=== PATIENT | female | born 1985 | race Hispanic/Latino ===

== ENCOUNTER 2018-01-03 21:11 | Emergency (ER) | payer SELFPAY ==
--- NOTE | 2018-01-03 21:52 | RAD ---
LEFT FOOT THREE VIEWS: 01/03/18 HISTORY: 32-year-old female with history of left foot injury with pain and discoloration. FINDINGS: Nondisplaced oblique fracture through the base of the distal phalanx of the great toe. This fracture may well extend into the interphalangeal joint. IMPRESSION: Nondisplaced slightly oblique fracture through the base of the distal phalanx of the great toe. POS: RRE
== END 2018-01-03 22:46 | disposition home or self-care (01) ==
LOC: ERS 21:11
DX: S92.425A Nondisplaced fracture of distal phalanx of left great toe, initial encounter for closed fracture (principal); F17.210 Nicotine dependence, cigarettes, uncomplicated; Z71.6 Tobacco abuse counseling; W22.8XXA Striking against or struck by other objects, initial encounter
CPT/HCPCS: 99406

== ENCOUNTER 2018-07-21 11:42 | Emergency (ER) | payer SELFPAY | END 2018-07-21 12:36 | disposition home or self-care (01) | LOC: ERS 11:42 | DX: B02.9 Zoster without complications (principal); F17.210 Nicotine dependence, cigarettes, uncomplicated | CPT/HCPCS: 99282 ==

== ENCOUNTER 2018-10-31 16:17 | Observation (INO) | payer SELFPAY ==
--- NOTE | 2018-10-31 16:48 | RAD ---
Exam: Chest one view HISTORY:Chest pain Comparison: None FINDINGS: Cardiac silhouette: Normal Pulmonary vessels: Normal Costophrenic angles: Clear LUNGS: No masses or consolidation. Pneumothorax: None Osseous abnormalities: None IMPRESSION: No acute cardiopulmonary process.
[2018-10-31 17:00] LABS: #Basophils 0.1 thou/uL (0.0-0.2); #Eosinphils 0.1 thou/uL (0.0-0.7); #Monocytes 0.4 thou/uL (0.11-0.59); #Neutrophils 6.1 thou/uL (1.40-6.50); %Basophils 0.8 % (0.0-1.0); %Eosinophils 0.6 % (0.0-10.0); %Monocytes 3.9 % (0.0-10.0); %Neutrophils 63.7 % (42.0-75.0); Hemoglobin 10.3 g/dL (12.0-16.0); Mean Corpuscular HGB CONC 32.2 g/dL (32.0-36.0); Mean Corpuscular Hemoglobin 24.9 pg (27.0-31.0); Mean Corpuscular Volume 77.2 fL (78.0-98.0); Mean Platelet Volume 7.5 fL (7.4-10.4); Platelet Count 438 thou/uL (130-400); RBC Distribution Width 15.2 % (11.5-14.5); Red Blood Cell (RBC) Count 4.16 mill/uL (4.20-5.40); White Blood Cell (WBC) Count 9.6 thou/uL (4.8-10.8)
[2018-10-31 17:21] LABS: ALT (SGPT) 12 U/L (8-55); AST (SGOT) 13 U/L (5-34); Albumin 4.3 g/dL (3.5-5.0); Alkaline Phosphatase 108 U/L (40-150); Anion Gap 13 mmol/L (10-20); BUN (Urea Nitrogen) 15 mg/dL (7.0-18.7); Bilirubin, Total 0.4 mg/dL (0.2-1.2); Calc. Creatinine Clearance 0 mL/min (70-130); Calcium 9.7 mg/dL (7.8-10.44); Carbon Dioxide 22 mmol/L (22-29); Chloride 107 mmol/L (98-107); Estimated GFR-MDRD 60; Globulin 3.8 g/dL (2.4-3.5); Glucose 91 mg/dL (70-105); Lipase 62 U/L (8-78); Potassium 4.6 mmol/L (3.5-5.1); Protein, Total 8.1 g/dL (6.0-8.3); Sodium 137 mmol/L (136-145)
[2018-10-31 17:38] LABS: Thyroid Stimulating Hormone 0.8725 uIU/mL (0.35-4.94)
[2018-10-31 17:44] LABS: BHCG - Serum Negative (NEGATIVE)
[2018-10-31 17:45] LABS: Pregs Control Background? CLEAR/WHITE (CLR/WHITE); Pregs Control Bar Appear? YES (CONTROL BAR)
[2018-10-31] MEDS ORDERED: Ketorolac Tromethamine 30 MG/ML VIAL ONE (18:21)
[2018-10-31 19:03] LABS: Bilirubin Negative (Negative); Blood, Urine Negative (Negative); Clarity Clear (Clear); Glucose, Urine (Dipstick) Normal (Negative); Leukocyte Negative Leu/uL (Negative); Nitrite Negative (Negative); Protein, Urine (Dipstick) Negative (Neg-Trace); Urobilinogen Normal mg/dL (Less than 2)
[2018-10-31 19:14] LABS: Amphetamine Not Detected (NotDetected); Barbiturates Screen Not Detected (NotDetected); Benzodiazepine Screen Not Detected (NotDetected); Cocaine Metabolite Screen Not Detected (NotDetected); Medtox Control Line Valid? VALID (VALID); Medtox Reader # READER 4; Methadone Not Detected (NotDetected); Methamphetamine Not Detected (NotDetected); Opiate Screen Not Detected (NotDetected); Oxycodone Screen Not Detected (NotDetected); Phencyclidine (PCP) Not Detected (NotDetected); THC/Cannabinoid Screen Not Detected (NotDetected); Tricyclic Screen Not Detected (NotDetected)
[2018-10-31] MEDS ORDERED: Mag-Al 1200 mg/1200 mg/30 ML UDCUP ONE (20:27)
[2018-10-31] MEDS ORDERED: Lidocaine Viscous Sol 2% 15 ml UD Cup ONE (20:27)
[2018-10-31 23:30] LABS: Troponin I Less than 0.010 ng/mL (< 0.028)
[2018-11-01] MEDS ORDERED: Aspirin Chewable 81 MG TAB ONE (00:01)
[2018-11-01 00:48] VITALS: BMI 25.5
[2018-11-01] MEDS ORDERED: Ondansetron PF 4 MG/2 ML Vial IVP PRN (01:48)
[2018-11-01] MEDS ORDERED: Calcium Carbonate 500 MG ChewTAB PO PRN (01:48)
[2018-11-01] MEDS ORDERED: Ondansetron ODT 4 MG TAB PO PRN (01:48)
[2018-11-01] MEDS ORDERED: cloNIDine 0.1 MG TAB PO PRN (01:48)
[2018-11-01] MEDS ORDERED: Acetaminophen 325 MG TAB PO PRN (01:48)
[2018-11-01] MEDS ORDERED: Nitroglycerin 0.4 MG TAB (25 Tab Bottle) PO PRN (01:48)
[2018-11-01] MEDS ORDERED: Cyclobenzaprine 10 MG TAB PO PRN (01:50)
--- NOTE | 2018-11-01 02:13 | HP ---
PRIMARY CARE PHYSICIAN: None. CHIEF COMPLAINT: Chest discomfort. HISTORY OF PRESENT ILLNESS: Patient is a 33-year-old female with ongoing tobacco abuse, presented to the emergency room with chest discomfort that has been going on for the last 5 to 6 days. It got worse over the last 2 to 3 days. It was under her left breast radiating to her left arm. It was constant, moderate in intensity without any aggravating or relieving factor. She also had intermittent palpitations especially at night. She denies any heartburn, belching, burping, cough, or shortness of breath. No recent immobilization travel reported. PAST MEDICAL HISTORY: History of shingles. PAST SURGICAL HISTORY: 1. Right breast biopsy. 2. Tonsillectomy. 3. Adenoidectomy. 4. Tubal ligation. ALLERGIES: NO KNOWN DRUG ALLERGIES. CURRENT HOME MEDICATIONS: Reviewed with the patient and none. FAMILY HISTORY: Positive for diabetes on mother's side. SOCIAL HISTORY: She smokes half pack a day. Denies any drug use. Drinks alcohol socially. REVIEW OF SYSTEMS: All other review of systems was reviewed and was found negative. PHYSICAL EXAMINATION: VITAL SIGNS: Temperature 99.1, respirations 20, pulse rate of 101, blood pressure 160/114 and 148/87, with O2 saturation of 100% on room air. GENERAL: A 33-year-old female in no apparent distress. HEENT: Head is atraumatic and normocephalic. Sclerae anicteric. Moist mucous membranes. No oral lesion. NECK: Supple. No JVD appreciated. No carotid bruit. LUNGS: Clear to auscultation bilaterally. No wheezing, rales, or rhonchi. HEART: S1, S2 present. Regular rate and rhythm. There is reproducible chest wall tenderness over the precordial region under her left breast. The pain gets worse on movement of the left upper extremity medially towards the chest. This is the same pain the patient came to the emergency room for. ABDOMEN: Soft, nontender. Bowel sounds present. No tenderness over the right upper quadrant or costovertebral angle. EXTREMITIES: No edema or calf tenderness. NEUROLOGIC: Grossly nonfocal. Moves all 4 extremities. PSYCHIATRY: Alert, awake, and oriented x3. SKIN: Warm and dry. LYMPH NODES: No palpable lymph nodes in the neck. PERIPHERAL VASCULAR: Radial pulses palpable bilaterally. MUSCULOSKELETAL: No joint swelling tenderness. LABORATORY FINDINGS: Troponin negative. test negative. D-dimer negative. WBC 9.6, hemoglobin 10.3, hematocrit 32.1, and platelet 438. Urinalysis was negative. Urine drug screen was negative. Chest x-ray by my review was negative for infiltrate. EKG by my review showed T-wave inversions in lateral leads. Repeat EKG showed upright T-waves in the lateral leads. IMPRESSION: 1. Reproducible chest pain with abnormal EKG. 2. Anemia suspected secondary to iron deficiency. 3. Chronic kidney disease, stage 2. 4. Ongoing tobacco abuse. 5. Family history of diabetes. PLAN: Patient will be monitored on the telemetry unit. We will obtain serial troponins. Echocardiogram will be obtained. She was counseled to quit smoking. We will add muscle relaxant. Chest pain is reproducible. She has low HEART score. Vital signs q.4 hourly. Telemetry monitoring. DISPOSITION: Probably in 24 hours based on the echocardiogram. Job ID: [id number]
[2018-11-01 02:32] LABS: Troponin I Less than 0.010 ng/mL (< 0.028)
[2018-11-01] MEDS ORDERED: Famotidine 20 MG TAB PO SCH (09:00)
[2018-11-01] MEDS ORDERED: Aspirin 325 mg Enteric Coated Tablet PO SCH (09:00)
[2018-11-01 15:59] VITALS: BP 131/72; TEMP 98.2
--- NOTE | 2018-11-01 18:32 | DIS ---
DATE OF ADMISSION: 10/31/2018 DATE OF DISCHARGE: 11/01/2018 CHIEF COMPLAINT ON ADMISSION: chest pain. DISCHARGE DIAGNOSES: 1. Reproducible noncardiac chest pain, acute coronary syndrome ruled out, normal echocardiogram. 2. Abnormal EKG of unclear significance. 3. Chronic iron-deficiency anemia. 4. Tobacco abuse. BRIEF HOSPITAL COURSE: Ms. Herrera is a 33-year-old female with past medical history significant for tobacco abuse, who presented to the hospital with a 2 to 3-day history of some ongoing chest discomfort that has lasted over the past several days. It was located underneath her left breast and seemed to radiate into the left arm. No associated symptoms. She does also complain of some discomfort consistent with GI. On arrival to the emergency department, she did have an initially showed T-wave inversions in the lateral leads. However, repeat EKG showed resolution of this. Her cardiac enzymes were completely negative. Her chest pain has completely resolved. Her echocardiogram was normal showing normal left ventricular systolic function. The patient has a very low heart score and with reproducible chest pain, ACS rule out. An echocardiogram showing normal left ventricular systolic function. It has been deemed appropriate to discharge the patient today, as ACS has been ruled out and her symptoms have completely resolved. DISCHARGE DISPOSITION: Home. DISCHARGE CONDITION: Stable. PLAN: I have counseled the patient extensively on tobacco cessation. She will return to the hospital with if her symptoms should return. I have asked her to follow up with a primary care physician. She will continue aggressive risk factor modification. She does have a family history of type 2 diabetes mellitus, and I have recommended routine screenings for this with a PCP. The patient will be discharged home today in good condition. Job ID: [id number] [facility]
--- NOTE | 2018-11-07 11:06 | EKG ---
Test Reason : Blood Pressure : / mmHG Vent. Rate : 104 BPM Atrial Rate : 104 BPM P-R Int : 116 ms QRS Dur : 062 ms QT Int : 322 ms P-R-T Axes : 070 057 -35 degrees QTc Int : 423 ms Sinus tachycardia Abnormal ECG T wave inversions, II, III, aVF, V3-V6 Confirmed by PETERSON LUQUE ([id number]), editor newspaper CORBIN GUTIÉRREZ ([id number]) on 11/07/2018 11:06:21 AM Referred By: Confirmed By:PETERSON LUQUE
--- NOTE | 2018-11-07 11:39 | EKG ---
Test Reason : CHEST PAIN Blood Pressure : / mmHG Vent. Rate : 075 BPM Atrial Rate : 075 BPM P-R Int : 138 ms QRS Dur : 084 ms QT Int : 360 ms P-R-T Axes : 053 047 009 degrees QTc Int : 402 ms Normal sinus rhythm Normal ECG Confirmed by PETERSON LUQUE ([id number]), continuity editor CORBIN GUTIÉRREZ ([id number]) on 11/07/2018 11:39:43 AM Referred By: Confirmed By:PETERSON LUQUE
== END 2018-11-01 17:59 | disposition home or self-care (01) ==
LOC: ERS 16:17 → 2SW 22:49
PROVIDERS: ADMIT Internal Medicine; ATTEND Internal Medicine
DX: R07.89 Other chest pain (principal); R94.31 Abnormal electrocardiogram [ECG] [EKG]; F17.210 Nicotine dependence, cigarettes, uncomplicated; D50.8 Other iron deficiency anemias; N18.2 Chronic kidney disease, stage 2 (mild); Z98.890 Other specified postprocedural states
CPT/HCPCS: 36415; 71045; 80053; 80306; 81003; 83690; 84443; 84484; 84703; 85025; 85379; 93005; 93306; 94760; 96361; 96374; G0378; J1885

== ENCOUNTER 2019-05-09 10:30 | Emergency (ER) | payer SELFPAY | END 2019-05-09 11:07 | disposition home or self-care (01) | LOC: ERS 10:30 | DX: K04.7 Periapical abscess without sinus (principal); F17.210 Nicotine dependence, cigarettes, uncomplicated | CPT/HCPCS: 99283 ==

== ENCOUNTER 2019-10-04 14:18 | Emergency (ER) | payer SELFPAY | END 2019-10-04 15:16 | disposition home or self-care (01) | LOC: ERS 14:18 | DX: L50.0 Allergic urticaria (principal); F17.210 Nicotine dependence, cigarettes, uncomplicated | CPT/HCPCS: 99283 ==

== ENCOUNTER 2020-03-24 21:51 | Emergency (ER) | payer SELFPAY | END 2020-03-24 22:49 | disposition home or self-care (01) | LOC: ERS 21:51 | DX: T78.40XA Allergy, unspecified, initial encounter (principal); F17.210 Nicotine dependence, cigarettes, uncomplicated; X58.XXXA Exposure to other specified factors, initial encounter | CPT/HCPCS: 99283 ==

== ENCOUNTER 2020-05-25 07:14 | Emergency (ER) | payer SELFPAY | END 2020-05-25 08:14 | disposition home or self-care (01) | LOC: ERS 07:14 | DX: S63.501A Unspecified sprain of right wrist, initial encounter (principal); F17.210 Nicotine dependence, cigarettes, uncomplicated; Y93.72 Activity, wrestling ==

== ENCOUNTER 2022-06-04 09:15 | Outpatient (CLI) | payer MEDICAID | END 2022-06-04 09:16 | disposition home or self-care (01) | LOC: BICMAMMO 09:15 | PROVIDERS: ATTEND Nurse Practitioner Family | DX: N63.11 Unspecified lump in the right breast, upper outer quadrant (principal) | CPT/HCPCS: 77066; G0279 ==